=== PATIENT | male | born 1950 | race Caucasian/White ===

== ENCOUNTER 2016-10-20 15:28 | Inpatient (IN) ==
--- NOTE | 2016-10-20 16:07 | Emergency Department Note ---
Stefany Naqvi Emily, am scribing for, and in the presence of, Eduar Do MD 15: 58. Ernestina Naqvi Charles R, MD, personally performed the services described in this documentation, ascribed by Cierra Mccall in my presence, and it is both accurate and complete [id number] . Arrival - Arrival Chief Complaint: Non-Specific ED Nursing Triage Note: pt was transfered from [facility] for low bp and uti and chills and n/d Mode of Arrival: Stretcher Limitations: No Limitations Source: Patient Time Seen by Provider: 10/20/16 15:43 - History of Present Illness HPI Narrative: Pt is a 66 y/o male who was transferred from [place] to ED for further evaluation of low BP and dx with UTI. Pt c/o body aches, chill, N/D and subjective fevers. Pt states "every bone in my body aches" and past 2 days has not got out of bed due to weakness. He reports losing 10lbs in 4 days, along with not eating anything in those days either. He also went to [facility] 5 years ago for CA check, in which had nml results. PMHx of NIDDM. Onset (ago): day(s) Consistency: constant Severity: moderate Severity scale (1-10): 5 Quality: aching Allergies/Adverse Reactions: Allergies Allergy/AdvReac Type Severity Reaction Status Date / Time No Known Allergies Allergy Unverified 04/23/15 19:39 Home Medications: Home Medications Medication Instructions Recorded Confirmed Type Pantoprazole Tab [Protonix Tab] 40 mg PO DAILY #14 tablet 04/23/15 Rx Review of System - Review of System 12 point system: reviewed and no additional remarkable complaints except as stated - Review of System Constitutional: Present: chills, fever (subjective), weakness (body aches) Respiratory: Absent: respiratory distress Cardiovascular: Absent: chest pain Gastrointestinal: Present: nausea, diarrhea. Absent: abdominal pain, vomiting Musculoskeletal: Absent: arm pain, back pain, leg pain, neck pain Skin: Absent: rash Neurological: Absent: headache, numbness, paresthesias Medical,Surgical,& Family Hx - Medical History Cardio: History of: Hypertension Endocrine: History of: Diabetes Mellitus (NIDDM) Musculoskeletal: History of: Musculoskeletal Problems (chronic pain) - Family History Family History: noncontributory - Social History Smoking Status: Never smoker Frequency of Alcohol Use: None Type of Drug Use: None Marital Status: Lives With:: Spouse Functional capacity: independent ambulation Exam Vital Signs: Vital Signs Temperature 98.3 F 10/20/16 15:35 Pulse Rate 101 H 10/20/16 15:35 Respiratory Rate 16 10/20/16 15:42 Blood Pressure 105/55 10/20/16 15:35 O2 Sat by Pulse Oximetry 94 L 10/20/16 15:42 - General General appearance: alert, in no apparent distress, other (appears globally weak ) - Head Head exam: Present: atraumatic, normocephalic - Eye Eye exam: Present: PERRL, EOMI - ENT ENT exam: Present: mucous membranes moist. Absent: mucous membranes dry - Neck Neck exam: Present: full ROM. Absent: tenderness - Chest Chest inspection: Present: symmetric chest wall rise. Absent: tenderness - Respiratory Respiratory exam: Present: normal lung sounds bilaterally. Absent: respiratory distress - Cardiovascular Cardiovascular exam: Present: regular rate, normal rhythm, normal heart sounds - Abdominal Exam Abdominal exam: Present: soft, normal bowel sounds. Absent: tenderness - Extremities Exam Extremities exam: Present: full ROM, pedal edema (+1). Absent: tenderness - Neurological Exam Neurological exam: Present: alert, oriented X3, CN II-XII intact, other ( bilateral lower extremity weakness) - Psychiatric Psychiatric exam: Present: normal affect, normal mood - Skin Skin exam: Present: warm, dry Course - Consultations Consultation #1: Hospitalist will admit patient Time: 16:06 Disposition Clinical Impression: Leukocytosis, Generalized weakness, UTI (urinary tract infection), Malaise and fatigue Case discussed with: patient Disposition: Still a Patient Condition: Stable Time of Disposition: 16:07
[2016-10-20] MEDS ORDERED: SODIUM CHLORIDE 0.9% 1,000 ML IV STA (16:51)
--- NOTE | 2016-10-20 16:55 | Hospitalist History & Physical ---
Assessment and Plan - Time spent with patient Time spent with patient: Greater than 30 minutes (1) Sepsis Status: Acute Assessment and plan: Patient has evidence of urinary tract infection also has 2 sirs criteria therefore meets criteria for sepsis. However lactic acid at the outlying facility was 1.0. He will be hydrated, cultured, placed on empiric IV antibiotics for his urinary tract infection while awaiting ID and sensitivity. Current Visit: Yes (2) UTI (urinary tract infection) Status: Acute Assessment and plan: He has been cultured and placed on empiric IV antibiotics. Current Visit: Yes (3) Renal failure Status: Acute Assessment and plan: Patient has elevated creatinine in baseline is unknown therefore I am unsure of the chronicity. Will aggressively hydrate and treat his underlying urinary tract infection with follow-up chemistries and renal function in a.m. we will also discontinue his nonsteroidal anti-inflammatory agent. Current Visit: Yes (4) Hypertension Status: Chronic Assessment and plan: He is currently hemodynamically stable. We will continue his routine home medications with the exception of benazepril at this time secondary to his elevated creatinine. Will follow-up laboratory studies in the a.m. and reassess. Current Visit: Yes Qualifiers: Hypertension type: essential hypertension Qualified Code(s): I10 - Essential (primary) hypertension (5) Diabetes mellitus Status: Chronic Assessment and plan: We will continue his home medical regimen with the exception of metformin in the presence of renal failure along with Accu-Cheks and sliding scale insulin. Current Visit: Yes Qualifiers: Diabetes mellitus type: type 2 (6) Thrombocytopenia Status: Acute Assessment and plan: Patient has mild thrombocytopenia of 118,000. This is likely secondary to sepsis. We will continue to follow. Current Visit: Yes History of Present Illness Chief complaint: Weakness, muscle aches, fever History of present illness: Mr. Jimenez is a 66 year old white male with a history of hypertension, non- insulin-dependent diabetes mellitus he states over the past 3-4 days he has noted generalized myalgias and arthralgias. He has had subjective fever with some sweats. He has had mild nausea but no emesis and states he has had very little oral intake over the past 3-4 days with approximately 10 pound weight loss. He did have some mild watery diarrhea several days ago this is resolved. He denies any chest pain, shortness breath, cough, sputum production, seizure , syncope, focal motor weakness or paresthesias, dysuria, hematuria, urinary frequency urgency or incontinence. He saw his primary care provider, Dr. Kristin Yang, and was referred to [facility]. He was evaluated there today and noted to have a leukocytosis with evidence of urinary tract infection and received 1 L of normal saline IV bolus, was cultured and received Rocephin IV prior to transfer to [facility]. Resuscitation status was discussed and he is a full code. His home medications which include glipizide, metformin, hydrochlorothiazide, benazepril, amlodipine, Cardura and meloxicam were noted. Home Medications Medication Instructions Recorded Confirmed Type Amlodipine Besylate [Amlodipine 10 mg PO DAILY 10/20/16 10/20/16 History Besylate] Benazepril HCl [Benazepril HCl] 20 mg PO DAILY 10/20/16 10/20/16 History Doxazosin Mesylate [Doxazosin 1 mg PO BEDTIME 10/20/16 10/20/16 History Mesylate] Meloxicam [Meloxicam] 15 mg PO DAILY 10/20/16 10/20/16 History Metformin HCl [Metformin HCl] 500 mg PO BID 10/20/16 10/20/16 History glipiZIDE [Glipizide] 10 mg PO BID 10/20/16 10/20/16 History hydroCHLOROthiazide 25 mg PO DAILY 10/20/16 10/20/16 History [Hydrochlorothiazide] Allergies Allergy/AdvReac Type Severity Reaction Status Date / Time No Known Allergies Allergy Unverified 04/23/15 19:39 Medical,Surgical,& Family Hx - Medical History Cardio: History of: Hypertension Endocrine: History of: Diabetes Mellitus (NIDDM) Musculoskeletal: History of: Musculoskeletal Problems (chronic pain) - Surgical History Orthopedic Surgeries: Surgical HX of;: Orthopedic Surgery (Right shoulder surgery) - Family History Family History: Denies;: Family Diabetes, Family Heart Disease - Social History Smoking Status: Never smoker Frequency of Alcohol Use: None Type of Drug Use: None Marital Status: Lives With:: Spouse Functional capacity: independent ambulation 12 point system: reviewed and no additional remarkable complaints except as stated Exam - Constitutional Vitals: Period Temp Pulse Resp BP Sys/Rudolph Pulse Ox Last 24 Hr 98.3 F-98.3 F 101-101 16-18 105-105/55-55 93-94 General appearance: no acute distress - Head Head exam: Present: normocephalic, atraumatic - Eye Eye exam: Present: EOMI. Absent: scleral icterus Pupils: Present: MERARY - ENT ENT exam: Present: normal oropharynx - Neck Neck exam: Absent: lymphadenopathy, meningismus, tenderness, thyromegaly - Respiratory Respiratory exam: Present: clear to auscultation bilaterally. Absent: accessory muscle use, rales, rhonchi, wheezes - Cardiovascular Cardiovascular exam: Present: regular rate and rhythm, tachycardia. Absent: gallop, JVD, rubs, systolic murmur - GI/Abdominal GI/Abdominal exam: Present: normal bowel sounds, soft. Absent: mass, organomegaly, tenderness, rebound - Extremities Exam Extremities exam: Present: normal capillary refill. Absent: calf tenderness, edema - Back Exam Back exam: Present: normal inspection - Neurological Exam Neurological exam: Present: alert, oriented X3, CN II-XII intact, reflexes normal. Absent: motor sensory deficit - Psychiatric Psychiatric exam: Present: normal affect, normal mood. Absent: agitated, anxious - Skin Skin exam: Present: warm, dry. Absent: erythema, petechiae, rash Results - Labs Lab Results: I have reviewed the past 24 hour labs Labs: Significant laboratory findings from [facility] revealed a white blood count of 28.62 with 65% segs, 17% bands, and 6% lymphs. Platelet count was 118,000, hemoglobin 12.2, hematocrit 36, MCV 106.5. Urinalysis revealed too numerous to count white blood cells, 0-3 red blood cells with positive leukocyte esterase and negative nitrites. Electrolytes revealed a sodium of 139 , potassium 3.6, chloride 96, CO2 28, BUN of 36, creatinine 2.1. Liver function studies within normal limits. Lactic acid 1.0. - Diagnostic Findings Procedure: KUB x-ray: report reviewed by me (KUB revealed cardiomegaly with no acute intra-abdominal process) Quality Measures - VTE Deep Vein Thrombosis/Pulmonary Embolism Present on Admission: No Sepsis - Sepsis Classification of Sepsis: Sepsis - Physical Exam Respiratory exam: clear to auscultation bilaterally Capillary Refill: Less Than 3 Seconds Peripheral pulses: Radial (L): 5+, Radial (R): 5+ Cardiovascular exam: regular rate and rhythm Skin exam: normal color
[2016-10-20 17:22] LABS: Apearance,Urine CLOUDY (Clear); Bilirubin,Urine Negative (Negative); Blood, Urine Moderate mg/dL (Negative); Glucose,Urine (UA) Negative (Negative); Hyaline Casts,Urine 22 /LPF (0-3); Ketones,Urine Negative (Negative); Mucus,Urine Occasional /LPF (Occasional); Nitrite,Urine Negative (Negative); Protein,Urine 100 MG/DL; RBC,Urine 6 /HPF (0-4); Squamous Epithelial Cell,Urine Occasional /HPF (0-10); Urine Color Amber (Yellow); WBC,Urine 169 /HPF (0-6)
--- NOTE | 2016-10-20 17:25 | XRay Report ---
XR chest 1V portable Indication: Fever Comparison: Chest x-ray 04/23/2015 Technique: Portable AP chest was performed. Findings: Subtle increase in nodular nonconsolidating airspace opacity in the left lung base is noted and may be influenced by the difference in inspiration. Chest otherwise demonstrates little change. Borderline mild cardiomegaly appears stable. Impression: 1. Developing infectious process left lung base versus atelectasis is not excluded. 10/20/2016 5:21 PM PROCEDURE INTERPRETED AT [facility] DEPARTMENT OF RADIOLOGY Final Report Signed by: Dr. Jaime Augustin
[2016-10-20] MEDS ORDERED: DEXTROSE 50% 25 GM/50 ML SYRINGE IV PRN (18:39)
[2016-10-20] MEDS ORDERED: GLUCAGON 1 MG VIAL IM PRN (18:39)
[2016-10-20] MEDS ORDERED: ONDANSETRON 4 MG/2 ML VIAL IV PRN (18:39)
[2016-10-20] MEDS ORDERED: ACETAMINOPHEN 325 MG TABLET PO PRN (18:39)
[2016-10-20] MEDS ORDERED: MORPHINE 2 MG/1 ML SYRINGE IV PRN (18:39)
[2016-10-20] MEDS ORDERED: ENOXAPARIN 40 MG/0.4 ML SYRINGE SUBCUT SCH (21:00)
[2016-10-20] MEDS: POTASSIUM CHLORIDE INJ 10 MEQ in SODIUM CHLORIDE 0.9% 1,000 ML IV SCH (21:34)
[2016-10-20] MEDS: MEROPENEM 1,000 MG in SODIUM CHLORIDE 0.9% 100 ML IV SCH (21:35)
[2016-10-20] MEDS: DOXAZOSIN 1 MG TABLET PO SCH (23:23)
[2016-10-20] MEDS: glipiZIDE 10 MG TABLET PO SCH (23:25)
[2016-10-20] MEDS: INSULIN REGULAR 100 UNIT/ML SUBCUT SCH (23:27)
[2016-10-21] MEDS: MEROPENEM 1,000 MG in SODIUM CHLORIDE 0.9% 100 ML IV SCH ×3 (04:31→20:48)
[2016-10-21 05:56] LABS: Basophils % 0.1 % (0.0-0.8); Eosinophils % 0.1 % (0.00-10.9); Hematocrit 30.7 VOL% (42.0-52.0); Hemoglobin 10.4 GM/DL (14.0-18.0); Immature Granulocytes % 1.3 %; Immature Granulocytes Absolute 0.19 #; Lymphocytes # 1.3 10*3/uL (1.4-4.0); Lymphocytes % 9.2 % (21.2-54.2); Mean Corpuscular HGB Conc 33.9 GM/DL (32-36); Mean Corpuscular Hemoglobin 36 PG (27-34); Mean Corpuscular Volume 105.1 FL (87-102); Mean Platelet Volume 11.7 FL (9.6-12.0); Monocytes # 1.2 10*3/uL (0.11-0.8); Monocytes % 8.2 % (1.7-12.7); Neutrophils # 11.5 10*3/uL (1.4-7.4); Neutrophils % 81.1 % (38.7-73.9); Platelet Count 95 T/CUMM (130-400); Red Blood Count 2.92 MC/CUMM (3.8-5.5); Red Cell Distribution Width 14.7 % (9.3-17.3); White Blood Count 14.2 T/CUMM (4-12)
[2016-10-21 06:21] LABS: Band Neutrophils 11 % (0-10); Lymphocytes 10 % (20-55); Metamyelocytes 1 %; Segmented Neutrophils 73 % (50-85); Total Cells Counted 100
[2016-10-21 06:22] LABS: Hypochromasia 1+; Macrocytosis Slight
[2016-10-21 06:43] LABS: Calcium 8.2 MG/DL (8.5-10.1); Osmolality,Calculated 287.4 MOS/KG (273-304); Potassium 3.2 MMOL/L (3.5-5.1)
[2016-10-21] MEDS: POTASSIUM CHLORIDE INJ 10 MEQ in SODIUM CHLORIDE 0.9% 1,000 ML IV SCH ×2 (07:13→17:45)
[2016-10-21 07:20] LABS: Folate 6.9 NG/ML (5.4-24.0)
[2016-10-21] MEDS: glipiZIDE 10 MG TABLET PO SCH ×2 (09:07→17:38)
[2016-10-21] MEDS: amLODIPine 10 MG TABLET PO SCH (09:07)
[2016-10-21] MEDS: INSULIN REGULAR 100 UNIT/ML SUBCUT SCH ×4 (09:09→20:49)
--- NOTE | 2016-10-21 12:36 | Ultrasound Report ---
US scrotum Indication: Testicular pain and swelling. Laterality of pain is not specified. Comparison: None. Technique: Using a transcutaneous probe, multiple grayscale and color Doppler images of the scrotum including testicles and epididymides were captured and stored. Findings: The right testicle demonstrates minimally heterogeneous echotexture. Both color flow and low resistance arterial waveforms are present within the right testicle. The left testicle demonstrates homogeneous echotexture with presence of color flow and low resistance arterial waveforms. There is a large cystic structure occupying the left hemiscrotum that measures up to 9.0 x 7.2 cm. Small hydrocele additionally is present within the left hemiscrotum. Epididymides are not well visualized. The cystic lesion described within the left hemiscrotum may arise from the left epididymis. Impression: 1. Large simple appearing cyst within the left hemiscrotum possibly arises in the epididymis. Exact etiology is uncertain. 2. Additional hydrocele is noted within the left temporal scrotum. 3. No evidence of testicular torsion. 10/21/2016 12:31 PM PROCEDURE INTERPRETED AT [facility] DEPARTMENT OF RADIOLOGY Final Report Signed by: Dr. Jaime Augustin
--- NOTE | 2016-10-21 13:50 | Hospitalist Progress Note ---
Assessment and Plan (1) Sepsis Status: Acute Assessment and plan: UC showed no growth so far. scrotal USS showed Large simple appearing cyst within the left hemiscrotum possibly arises in the epididymis. Exact etiology is uncertain.Additional hydrocele is noted within the left temporal scrotum. No evidence of testicular torsion. continue with IVF, antibiotics. Urology consult Current Visit: Yes (2) UTI (urinary tract infection) Status: Acute Assessment and plan: UC was negative so far Current Visit: Yes (3) Renal failure Status: Acute Assessment and plan: Improved IVF Current Visit: Yes (4) Hypertension Status: Chronic Assessment and plan: stable Current Visit: Yes Qualifiers: Hypertension type: essential hypertension Qualified Code(s): I10 - Essential (primary) hypertension (5) Diabetes mellitus Status: Chronic Assessment and plan: [id number] continue current regime Current Visit: Yes Qualifiers: Diabetes mellitus type: type 2 (6) Thrombocytopenia Status: Acute Assessment and plan: Hold Lovenox, continue to watch Current Visit: Yes (7) Diarrhea Status: Acute Assessment and plan: stool studies, C.difficile Current Visit: Yes (8) Scrotal swelling Status: Acute Assessment and plan: scrotal USS showed Large simple appearing cyst within the left hemiscrotum possibly arises in the epididymis. Exact etiology is uncertain.Additional hydrocele is noted within the left temporal scrotum. No evidence of testicular torsion. Plan continue IV antibiotics Urology consult Follw Ct abd/pelvis Current Visit: Yes Hospitalist: Subjective Interval history: Patient complains of passing watery stools. He also complained of lower abdominal pain and swollen scrotum. Exam - Constitutional Vitals: Period Temp Pulse Resp BP Sys/Rudolph Pulse Ox Last 24 Hr 96.9 F-98.6 F 70-101 16-20 105-145/55-81 90-97 General appearance: no acute distress - Head Head exam: Present: normal inspection - Respiratory Respiratory exam: Present: clear to auscultation bilaterally - Cardiovascular Cardiovascular exam: Present: regular rate and rhythm - GI/Abdominal GI/Abdominal exam: Present: distended, other (swollen scrotum) - Extremities Exam Extremities exam: Present: normal inspection - Neurological Exam Neurological exam: Present: alert, oriented X3 Results - Labs CBC & BMP: 10/21/16 05:15 10/21/16 05:15 Lab Results: I have reviewed the past 24 hour labs Quality Measures - VTE Deep Vein Thrombosis/Pulmonary Embolism Present on Admission: No
[2016-10-21] MEDS: DOXAZOSIN 1 MG TABLET PO SCH (20:49)
[2016-10-22] MEDS: POTASSIUM CHLORIDE INJ 10 MEQ in SODIUM CHLORIDE 0.9% 1,000 ML IV SCH ×2 (01:00→20:00)
[2016-10-22] MEDS: MEROPENEM 1,000 MG in SODIUM CHLORIDE 0.9% 100 ML IV SCH ×3 (03:25→20:49)
[2016-10-22 07:04] LABS: Hematocrit 31.2 VOL% (42.0-52.0); Hemoglobin 10.5 GM/DL (14.0-18.0); Immature Granulocytes % 4.5 %; Immature Granulocytes Absolute 0.26 #; Lymphocytes % 17.1 % (21.2-54.2); Mean Corpuscular HGB Conc 33.7 GM/DL (32-36); Mean Corpuscular Hemoglobin 35 PG (27-34); Mean Platelet Volume 12.3 FL (9.6-12.0); Monocytes # 0.6 10*3/uL (0.11-0.8); Monocytes % 9.7 % (1.7-12.7); Neutrophils % 68.7 % (38.7-73.9); Platelet Count 108 T/CUMM (130-400); Red Cell Distribution Width 14.6 % (9.3-17.3); White Blood Count 5.8 T/CUMM (4-12)
[2016-10-22 07:29] LABS: Calcium 8.3 MG/DL (8.5-10.1)
[2016-10-22 07:30] LABS: Osmolality,Calculated 287.1 MOS/KG (273-304); Potassium 3.7 MMOL/L (3.5-5.1)
[2016-10-22 07:37] LABS: Band Neutrophils 6 % (0-10); Eosinophils 1 % (0-10); Hypochromasia 1+; Lymphocytes 23 % (20-55); Macrocytosis Slight; Platelet Estimate Adequate; Segmented Neutrophils 63 % (50-85); Total Cells Counted 100
[2016-10-22] MEDS: INSULIN REGULAR 100 UNIT/ML SUBCUT SCH ×4 (08:25→21:18)
--- NOTE | 2016-10-22 08:25 | CT Report ---
CT abdomen pelvis Indication: Abdominal pain, UTI and sepsis Comparison: None available Technique: Axial CT imaging of the abdomen and pelvis is performed with intravenous and oral contrast. Contrast dose is 100 cc of Omnipaque 350. Findings: Cardiac and lung bases are within normal limits CT abdomen: The liver spleen pancreas and adrenal glands are normal in size and enhancement. No evidence of focal lesion is demonstrated in these solid organs. Kidneys are normal in size. There is a cyst on the left kidney that measures 2.9 cm in size.. No evidence of hydronephrosis or nephrolithiasis is seen. The bowel caliber is normal and no wall thickening or adjacent inflammatory change is seen. No evidence of free fluid or free air is present. CT pelvis: The pelvic bowel appears within normal limits. Bladder shows no evidence of abnormality. The prostate gland has small amount of calcification without other abnormal low density. Impression: No evidence of acute process demonstrated. Simple appearing left renal cyst. This CT exam was performed using one or more the following dose reduction techniques: Automated exposure control, adjustment of the MA and/or KV according to patient size, or use of iterative reconstruction technique. PROCEDURE INTERPRETED AT [facility] DEPARTMENT OF RADIOLOGY Final Report Signed by: Dr. Chace Matute
[2016-10-22] MEDS: glipiZIDE 10 MG TABLET PO SCH ×2 (08:45→17:08)
[2016-10-22] MEDS: amLODIPine 10 MG TABLET PO SCH (08:45)
--- NOTE | 2016-10-22 10:31 | Hospitalist Progress Note ---
Assessment and Plan (1) Sepsis Status: Acute Assessment and plan: UC and BC showed no growth so far. scrotal USS showed Large simple appearing cyst within the left hemiscrotum possibly arises in the epididymis. Exact etiology is uncertain.Additional hydrocele is noted within the left temporal scrotum. No evidence of testicular torsion. continue with IVF, antibiotics. Await Urology consult Current Visit: Yes (2) UTI (urinary tract infection) Status: Acute Assessment and plan: UC was negative so far, we will contact [facility] to find out the results of their UC and possible de-escalate antibiotics. Current Visit: Yes (3) Renal failure Status: Acute Assessment and plan: Improved IVF Current Visit: Yes (4) Hypertension Status: Chronic Assessment and plan: stable Current Visit: Yes Qualifiers: Hypertension type: essential hypertension Qualified Code(s): I10 - Essential (primary) hypertension (5) Diabetes mellitus Status: Chronic Assessment and plan: [id number] continue current regime Current Visit: Yes Qualifiers: Diabetes mellitus type: type 2 (6) Thrombocytopenia Status: Acute Assessment and plan: Hold Lovenox, continue to watch Current Visit: Yes (7) Diarrhea Status: Acute Assessment and plan: stool studies, C.difficile Current Visit: Yes (8) Scrotal swelling Status: Acute Assessment and plan: scrotal USS showed Large simple appearing cyst within the left hemiscrotum possibly arises in the epididymis. Exact etiology is uncertain.Additional hydrocele is noted within the left temporal scrotum. No evidence of testicular torsion. CT abd/pelvic:No evidence of acute process demonstrated. Simple appearing left renal cyst. Plan continue IV antibiotics Urology consult Current Visit: Yes Hospitalist: Subjective Interval history: 66yr old male with multiple medical issues admitted for UTI and Sepsis. He has a scrotal swelling and now demonstrating symptoms of obstruction. he is straining to urinate. His scrotal uss showed possible epididymis and we are waiting for Urology to see. Exam - Constitutional Vitals: Period Temp Pulse Resp BP Sys/Rudolph Pulse Ox Last 24 Hr 97.4 F-98.5 F 79-99 18-20 143-165/70-90 90-97 General appearance: no acute distress - Head Head exam: Present: normal inspection - Neck Neck exam: Present: normal inspection - Respiratory Respiratory exam: Present: clear to auscultation bilaterally - Cardiovascular Cardiovascular exam: Present: regular rate and rhythm - GI/Abdominal GI/Abdominal exam: Present: normal bowel sounds, other (scrotal swelling) - Extremities Exam Extremities exam: Present: normal inspection - Neurological Exam Neurological exam: Present: alert, oriented X3 Results - Labs CBC & BMP: 10/22/16 06:29 10/22/16 06:29 Lab Results: I have reviewed the past 24 hour labs Quality Measures - VTE Deep Vein Thrombosis/Pulmonary Embolism Present on Admission: No
--- NOTE | 2016-10-22 11:05 | Urology Consultation ---
Assessment and Plan - Time spent with patient Time spent with patient: Greater than 30 minutes (1) BPH w urinary obs/LUTS Status: Acute Assessment and plan: I will begin Flomax and see how his voiding pattern improved. His urine culture is negative. Current Visit: Yes (2) Hydrocele, left Status: Acute Assessment and plan: He now wishes for this to be repaired. This can be done at a later date electively. He needs to get all these issues settled first. Current Visit: Yes History of Present Illness - Data of Consult Patient: known to practice within the last 3 years Consult date: 10/22/16 Requesting Physician: Svetlana Card - Consult Narrative Reason for consult: Hydrocele History of present illness: Mr. Jimenez is a 66 year old male who was admitted the hospital with malaise, fever and thought to have urinary tract infection. He subsequently developed GI symptoms. He does have a hydrocele that I saw him some months ago. At that time he was unsure if he wanted this to be repaired. He is now in the hospital he has no fever and his white count is normal but he is having diarrhea and loose stools. He denies any cramps but he does have some left lower quadrant discomfort. Scrotal ultrasound shows a multicystic mass in the left hemiscrotum. This is a loculated hydrocele. CT scan was obtained that did not reveal any significant findings. Specifically in the tract, no hydronephrosis, masses or stones. He does complain of voiding issues and has some hesitancy and urgency and dysuria. I think this is related to BPH and voiding dysfunction more than it is infected in nature. Is obstructive in nature. The hydroceles elective procedure he wants this corrected and we can do that at a later date when he gets all these other issues I doubt. From a voiding standpoint I am going to get begin him on Flomax twice a day. He also needs a PSA. CC: Svetlana Card MD - Home Medications and Allergies Home Medications: Home Medications Medication Instructions Recorded Confirmed Type Amlodipine Besylate [Amlodipine 10 mg PO DAILY 10/20/16 10/20/16 History Besylate] Benazepril HCl [Benazepril HCl] 20 mg PO DAILY 10/20/16 10/20/16 History Doxazosin Mesylate [Doxazosin 1 mg PO BEDTIME 10/20/16 10/20/16 History Mesylate] Meloxicam [Meloxicam] 15 mg PO DAILY 10/20/16 10/20/16 History Metformin HCl [Metformin HCl] 500 mg PO BID 10/20/16 10/20/16 History glipiZIDE [Glipizide] 10 mg PO BID 10/20/16 10/20/16 History hydroCHLOROthiazide 25 mg PO DAILY 10/20/16 10/20/16 History [Hydrochlorothiazide] Allergies/Adverse Reactions: Allergies Allergy/AdvReac Type Severity Reaction Status Date / Time No Known Allergies Allergy Unverified 04/23/15 19:39 12 point system: reviewed and no additional remarkable complaints except as stated - Genitourinary Genitourinary: Present: dysuria, nocturia, urinary frequency, other (Hesitancy) Exam - Constitutional Vitals: Period Temp Pulse Resp BP Sys/Rudolph Pulse Ox Last 24 Hr 97.4 F-98.5 F 79-99 18-20 143-165/70-90 90-97 - GI/Abdominal GI/Abdominal exam: Present: tenderness (Left lower quadrant) - Genitourinary Genitourinary: penis with no lesions or discharge (Hidden), other (Moderate left loculated hydrocele) Results - Labs CBC & BMP: 10/22/16 06:29 10/22/16 06:29 Lab Results: I have reviewed the past 24 hour labs - Diagnostic Findings Procedure: CT Abdomen and Pelvis: report reviewed by me, image reviewed by me ( Reviewed), Ultrasound: report reviewed by me, image reviewed by me (Reviewed)
[2016-10-22] MEDS: TAMSULOSIN 0.4 MG CAPSULE PO SCH ×2 (12:05→20:49)
[2016-10-22] MEDS: DOXAZOSIN 1 MG TABLET PO SCH (20:49)
[2016-10-22] MEDS ORDERED: HYDROCORTISONE 2.5% RECTAL CREAM 30 GM TUBE TOP PRN (20:54)
[2016-10-23] MEDS: POTASSIUM CHLORIDE INJ 10 MEQ in SODIUM CHLORIDE 0.9% 1,000 ML IV SCH ×3 (03:46→21:30)
[2016-10-23] MEDS: MEROPENEM 1,000 MG in SODIUM CHLORIDE 0.9% 100 ML IV SCH ×3 (04:13→21:23)
--- NOTE | 2016-10-23 09:11 | Urology Progress Note ---
Assessment and Plan (1) BPH w urinary obs/LUTS Status: Acute Assessment and plan: I will begin Flomax and see how his voiding pattern improved. His urine culture is negative. Current Visit: Yes (2) Hydrocele, left Status: Acute Assessment and plan: He now wishes for this to be repaired. This can be done at a later date electively. He needs to get all these issues settled first. Current Visit: Yes Urology - PN: Subj Interval history: Patient's urine cultures negative at 48 hours. The Flomax is helping him void. Again, the hydrocele he elects for repair now but we need to wait till he is clearly over this episode. Appears to be GI in nature. Exam - Constitutional Vitals: Period Temp Pulse Resp BP Sys/Rudolph Pulse Ox Last 24 Hr 97.2 F-98.3 F 70-79 18-20 149-187/85-98 90-94 Results - Labs CBC & BMP: 10/22/16 06:29 10/22/16 06:29
[2016-10-23] MEDS: INSULIN REGULAR 100 UNIT/ML SUBCUT SCH ×4 (09:15→21:17)
[2016-10-23] MEDS: TAMSULOSIN 0.4 MG CAPSULE PO SCH ×2 (09:17→21:15)
[2016-10-23] MEDS: amLODIPine 10 MG TABLET PO SCH (09:17)
[2016-10-23] MEDS: glipiZIDE 10 MG TABLET PO SCH ×2 (09:18→17:28)
[2016-10-23] MEDS ORDERED: ALBUTEROL 2.5 MG/3 ML NEB RESP TX ONE (14:44)
--- NOTE | 2016-10-23 15:58 | Hospitalist Progress Note ---
Assessment and Plan - Time spent with patient Time spent with patient: Greater than 30 minutes (Pt is new to me. I reviewed pt 's chart today. I discussed with RN, pt and his family members in regarding his clinical status today.) (1) Sepsis Status: Acute Assessment and plan: Resolved. Continue IV merrem. Current Visit: Yes (2) UTI (urinary tract infection) Status: Acute Assessment and plan: Improving. Continue IV merrem. Current Visit: Yes (3) Hypertension Status: Chronic Assessment and plan: Continue current medical treatment regimen. Current Visit: Yes Qualifiers: Hypertension type: essential hypertension Qualified Code(s): I10 - Essential (primary) hypertension (4) Diabetes mellitus Status: Chronic Assessment and plan: Continue current treatment plan. Current Visit: Yes Qualifiers: Diabetes mellitus type: type 2 (5) Scrotal swelling Status: Acute Assessment and plan: Improving. Current Visit: Yes (6) BPH w urinary obs/LUTS Status: Acute Assessment and plan: Appreciate Urology recs. Flomax per Urology. Current Visit: Yes (7) Hydrocele, left Status: Acute Current Visit: Yes (8) Thrombocytopenia Status: Acute Assessment and plan: Monitor platelet count. CBC in am. Current Visit: Yes Hospitalist: Subjective Interval history: No overnight acute event. Abd pain improved. OSH ER urine culture positive for Kelbsiella and pansensitive. Currently Pt is on IV merrem. Urine culture in our hospital is negative. Day 3 on IV merrem. Urology consulted. Flomax started per Urology. No fever or diarrhea reported. Exam - Constitutional Vitals: Period Temp Pulse Resp BP Sys/Rudolph Pulse Ox Last 24 Hr 97.2 F-98.3 F 68-79 18-20 149-187/79-98 90-94 Exam: General: Sitting at bedside. AAOx3. HEENT: NC AT EOMI, normal lips and gum and teeth. Lungs: B/L CTA Heart: +S1/S2, RRR, no gallops. Abd: +BS, NT ND Neuro: Can ambulate. AAOx3. Results - Labs CBC & BMP: 10/22/16 06:29 10/22/16 06:29 Quality Measures - VTE Deep Vein Thrombosis/Pulmonary Embolism Present on Admission: No
[2016-10-23] MEDS ORDERED: ALBUTEROL 2.5 MG/3 ML NEB RESP TX PRN (18:00)
[2016-10-23] MEDS: DOXAZOSIN 1 MG TABLET PO SCH (21:13)
[2016-10-24 02:33] LABS: Basophils % 0.2 % (0.0-0.8); Eosinophils % 0.4 % (0.00-10.9); Hematocrit 28.9 VOL% (42.0-52.0); Hemoglobin 9.8 GM/DL (14.0-18.0); Immature Granulocytes % 8.7 %; Lymphocytes # 1.1 10*3/uL (1.4-4.0); Lymphocytes % 23.5 % (21.2-54.2); Mean Corpuscular HGB Conc 33.9 GM/DL (32-36); Mean Corpuscular Hemoglobin 35 PG (27-34); Mean Corpuscular Volume 104.3 FL (87-102); Mean Platelet Volume 11.9 FL (9.6-12.0); Monocytes # 0.7 10*3/uL (0.11-0.8); Monocytes % 14.8 % (1.7-12.7); Neutrophils # 2.4 10*3/uL (1.4-7.4); Neutrophils % 52.4 % (38.7-73.9); Platelet Count 124 T/CUMM (130-400); Red Blood Count 2.77 MC/CUMM (3.8-5.5); Red Cell Distribution Width 14.3 % (9.3-17.3); White Blood Count 4.6 T/CUMM (4-12)
[2016-10-24 02:53] LABS: Calcium 8.2 MG/DL (8.5-10.1); Magnesium 1.8 MG/DL (1.8-2.4); Osmolality,Calculated 287.1 MOS/KG (273-304); Potassium 3.6 MMOL/L (3.5-5.1)
[2016-10-24 03:17] LABS: Band Neutrophils 10 % (0-10); Eosinophils 1 % (0-10); Lymphocytes 22 % (20-55); Metamyelocytes 2 %; Segmented Neutrophils 50 % (50-85); Total Cells Counted 100
[2016-10-24 03:18] LABS: Anisocytosis 1+; Macrocytosis 1+; Nucleated Red Blood Cells 4 (0-5); Platelet Estimate Decreased
[2016-10-24] MEDS: MEROPENEM 1,000 MG in SODIUM CHLORIDE 0.9% 100 ML IV SCH (04:34)
[2016-10-24] MEDS: INSULIN REGULAR 100 UNIT/ML SUBCUT SCH ×2 (08:28→13:20)
[2016-10-24] MEDS: amLODIPine 10 MG TABLET PO SCH (08:56)
[2016-10-24] MEDS: TAMSULOSIN 0.4 MG CAPSULE PO SCH (08:56)
[2016-10-24] MEDS: glipiZIDE 10 MG TABLET PO SCH (08:56)
[2016-10-24] MEDS: POTASSIUM CHLORIDE INJ 10 MEQ in SODIUM CHLORIDE 0.9% 1,000 ML IV SCH (11:25)
--- NOTE | 2016-10-24 11:55 | Urology Progress Note ---
Assessment and Plan (1) BPH w urinary obs/LUTS Status: Acute Assessment and plan: I will begin Flomax and see how his voiding pattern improved. His urine culture is negative. Current Visit: Yes (2) Hydrocele, left Status: Acute Assessment and plan: He now wishes for this to be repaired. This can be done at a later date electively. He needs to get all these issues settled first. Current Visit: Yes Urology - PN: Subj Interval history: Patient continues to feel better and voiding better. I have him on Flomax twice a day. His PSA of almost 11 is noted. He is going home and I agree with that. I will make him an appointment see me in 3 weeks. We will obviously repeat his PSA later. Prescription was written for the Flomax twice a day. Instructions were given to call the office and he will have our number for the follow-up appointment. Exam - Constitutional Vitals: Period Temp Pulse Resp BP Sys/Rudolph Pulse Ox Last 24 Hr 97.2 F-98.3 F 62-87 17-22 146-180/79-93 85-94 Results - Labs CBC & BMP: 10/24/16 01:36 10/24/16 01:36
[2016-10-24 12:02] LABS: Folate 5.9 NG/ML (5.4-24.0)
--- NOTE | 2016-10-24 12:36 | Discharge Summary ---
<Demetris Sloan - Last Filed: 10/24/16 12:24> Hospital Course - Hospital Course Hospital Course: This is a chronically ill 66-year-old male that presented to the ED at [facility] on the afternoon of October 20, 2016 as a transfer from the [facility] in [place], [place] for the further evaluation of weakness, muscle aches, and fever. The patient has a medical history significant for hypertension, [id number] diabetes mellitus, and chronic pain. The patient reported a surgical history significant for right shoulder surgery. The patient reported the onset of symptoms 4 days prior to presentation. He reported a gradual onset that was accompanied with bouts of fever with diaphoresis noted. He reported that he has experienced a decrease in oral intake as a result due to persistent nausea. He estimates that he has had at least 10 pound weight loss. Incidentally, he reported that he had a bout of diarrhea several days prior to presentation however the symptoms had resolved at the time of presentation. He initially sought medical attention at his primary care physician's office, Dr. Roselyn Yang and was subsequently referred to the [facility] in [place], [place] for further evaluation. The patient was seen and evaluated there and subsequently diagnosed with urosepsis. A sepsis workup was initiated and empiric antibiotic therapy and aggressive rehydration was initiated. The patient was subsequently transferred to [facility] for further evaluation. Chest x -ray reported developing infectious process noted at the left lung base versus atelectasis. The patient was subsequently admitted to [facility] for continuation of care. Empiric antibiotic coverage and rehydration was continued. On October 20, 2016, the patient reported scrotal pain and an ultrasound of the scrotum was performed which was significant for a large simple appearing cyst within the left hemiscrotum possibly arising in the epididymis, hydrocele was noted in the left and poor scrotum, however no evidence of testicular torsion was noted. In addition, CT abdomen and pelvis was unremarkable for any evidence of intra- abdominal acute processes however a simple appearing left renal cyst was noted. A urology consultation was requested to evaluate and recommendations were given. Due to the presence of the hydrocele in the left scrotum, the patient was advised of the need for repair of the hydrocele. Upon the advice of the urologist Dr. Wally Farley, the hydrocele was suggested to be repaired in the outpatient setting due to the current infectious process. In addition, the patient was started on alpha blockers to assist with dysuria. Winter cultures were significant for no growth to date. The patient's condition gradually improved. The patient has not experienced any significant overnight events. The patient's condition is stable. Today, we feel that the patient is indeed appropriate for discharge to follow-up with his primary care physician Dr. Kristin Yang and urologist Dr. Wally Farley as indicated. Discharge Plan - Discharge Data Disposition: Disch To Home/Self Care - Discharge Medications New Hydrocortisone 2.5% Rectal Cr [Anusol HC Cream] 1 applic TOP QID PRN #20 applic PRN Reason: Hemorrhoids Lactobacillus Rhamnosus GG [Culturelle] 1 capsule PO BID #20 capsule Tamsulosin [Flomax] 0.4 mg PO BID #60 capsule Ciprofloxacin Tab [Cipro Tab] 500 mg PO Q12HR #20 tablet Continue Amlodipine Besylate 10 mg PO DAILY Doxazosin Mesylate 1 mg PO BEDTIME glipiZIDE [Glipizide] 10 mg PO BID hydroCHLOROthiazide [Hydrochlorothiazide] 25 mg PO DAILY Metformin HCl 500 mg PO BID Benazepril HCl 20 mg PO DAILY Meloxicam 15 mg PO DAILY - Follow Up or Referral - Forms/Instructions Exam - Constitutional Vitals: Period Temp Pulse Resp BP Sys/Rudolph Pulse Ox Last 24 Hr 97.2 F-98.1 F 62-90 17-22 146-185/81-97 85-94 Discharge Results Procedures and tests throughout hospitalization: Pending Orders 10/20/16 17:32 Blood Culture Stat 10/21/16 13:56 C. Diff Toxins A & B Routine Occult Blood, Stool Routine Stool Culture/Campy/Yersinia Routine Stool for WBCs Routine Labs on day of discharge: Labs from last 24 hours 10/24/16 10/24/16 10/24/16 Unknown 11:43 08:15 WBC RBC Hgb Hct MCV MCH MCHC RDW Plt Count MPV Neut % (Auto) Lymph % (Auto) [place] % (Auto) Eos % (Auto) Baso % (Auto) Neut # (Auto) Lymph # (Auto) [place] # (Auto) Eos # (Auto) Baso # (Auto) Total Counted Immature Gran % Nucleated RBC % Immature Gran # Segmented Neutrophils Band Neutrophils Lymphocytes Monocytes Eosinophils Basophils Metamyelocytes Nucleated RBCs Nucleated RBCs # Platelet Estimate Immature Plt Fraction Anisocytosis Macrocytosis Sodium Potassium Chloride Carbon Dioxide Anion Gap BUN Creatinine GFR Calculation BUN/Creatinine Ratio Glucose POC Glucose 149 H 149 H Calculated Osmolality Calcium Magnesium Vitamin B12 285 Folate 5.9 10/24/16 10/24/16 10/23/16 01:36 01:36 20:14 WBC 4.6 RBC 2.77 L Hgb 9.8 L Hct 28.9 L MCV 104.3 H MCH 35 H MCHC 33.9 RDW 14.3 Plt Count 124 L MPV 11.9 Neut % (Auto) 52.4 Lymph % (Auto) 23.5 [place] % (Auto) 14.8 H Eos % (Auto) 0.4 Baso % (Auto) 0.2 Neut # (Auto) 2.4 Lymph # (Auto) 1.1 L [place] # (Auto) 0.7 Eos # (Auto) 0.0 Baso # (Auto) 0.0 Total Counted 100 Immature Gran % 8.7 Nucleated RBC % 0.0 Immature Gran # 0.40 Segmented Neutrophils 50 Band Neutrophils 10 Lymphocytes 22 Monocytes 13 Eosinophils 1 Basophils 2.0 H Metamyelocytes 2 Nucleated RBCs 4 Nucleated RBCs # 0.00 Platelet Estimate Decreased Immature Plt Fraction 0.0 Anisocytosis 1+ Macrocytosis 1+ Sodium 142 Potassium 3.6 Chloride 107 Carbon Dioxide 27 Anion Gap 11.6 BUN 18 Creatinine 0.70 GFR Calculation 120 BUN/Creatinine Ratio 25.00 H Glucose 150 H POC Glucose 219 H Calculated Osmolality 287.1 Calcium 8.2 L Magnesium 1.8 Vitamin B12 Folate 10/23/16 16:02 WBC RBC Hgb Hct MCV MCH MCHC RDW Plt Count MPV Neut % (Auto) Lymph % (Auto) [place] % (Auto) Eos % (Auto) Baso % (Auto) Neut # (Auto) Lymph # (Auto) [place] # (Auto) Eos # (Auto) Baso # (Auto) Total Counted Immature Gran % Nucleated RBC % Immature Gran # Segmented Neutrophils Band Neutrophils Lymphocytes Monocytes Eosinophils Basophils Metamyelocytes Nucleated RBCs Nucleated RBCs # Platelet Estimate Immature Plt Fraction Anisocytosis Macrocytosis Sodium Potassium Chloride Carbon Dioxide Anion Gap BUN Creatinine GFR Calculation BUN/Creatinine Ratio Glucose POC Glucose 185 H Calculated Osmolality Calcium Magnesium Vitamin B12 Folate Preliminary micro results at discharge 10/20/16 17:32 Blood Culture - Preliminary Blood No growth at 3 days 10/20/16 17:32 Blood Culture - Preliminary Blood No growth at 3 days DS: Provider Date of admission: 10/20/16 16:44 Primary care physician: . No PCP Attending physician on admission: Román Polanco MD Consults: 10/21/16 14:11 Consult to Physician [CONS] Routine Comment: Consulting Provider: Wally Farley Consult to Specialist Group: Urology When should Consulting Provider be notified: Now Person Notified: JESSIE Date Notified: 10/21/16 Time Notified: 14:42 Discharging clinician: Demetris Sloan CNP <Bryant Urena - Last Filed: 10/24/16 13:51> Discharge Plan - Discharge Data Condition at Discharge: Stable Discharge Diet: diabetic diet, heart healthy Activity: resume usual activities as tolerated Hygiene: no restrictions Weight Bearing at Discharge: full weight bearing Contact your physician if you experience:: fever over 101, Difficulty voiding, Shortness of breath, Bleeding Exam - Constitutional General appearance: over weight, other (Patient is doing very well however noted on his hemogram microcytic anemia with relative neutropenia talk to him at length regarding need to see his doctor within a week mention to his primary care physician about possibility of seeing a used car salesperson for verbal consent for possibility of myelodysplastic syndrome. I believe the CBC needs to be followed at least within the coming 4-6 weeks-but remains to be of normal see used car salesperson) - Head Head exam: Present: normocephalic, atraumatic - Eye Eye exam: Present: EOMI Pupils: Present: MERARY - Respiratory Respiratory exam: Present: clear to auscultation bilaterally - Cardiovascular Cardiovascular exam: Present: regular rate and rhythm - GI/Abdominal GI/Abdominal exam: Present: normal bowel sounds, soft - Neurological Exam Neurological exam: Present: alert, oriented X3, CN II-XII intact - Psychiatric Psychiatric exam: Present: normal affect, normal mood - Skin Skin exam: Present: normal color, warm, dry
[2016-10-24 13:03] VITALS: BP 169/87
[2016-10-24] MEDS ORDERED: CIPROFLOXACIN 500 MG TABLET PO SCH (21:00)
[2016-10-24] MEDS ORDERED: LACTOBACILLUS RHAMNOSUS GG CAPSULE PO SCH (21:00)
== END 2016-10-24 15:35 | disposition home or self-care (01) | DRG 872 ==
LOC: EDBD → EDUNIT# → N.ED 15:28 → N.EDINP 16:44 → SUATTDRO 16:44 → N.EDINP 17:58 → N.2E 18:36
PROVIDERS: ADMIT Family Medicine; ATTEND Internal Medicine Infectious Disease